=== PATIENT | male | born 1980 | race Caucasian/White ===

== ENCOUNTER → 2017-12-31 | Outpatient (CLI) | payer BC ==
--- NOTE | 2017-12-31 13:00 | PCVCIMAG ---
APPROVED REPORT Study performed: 12/31/2017 11:09:01 Exam: Stress Echocardiogram Indication: Hyperlipidemia, Dyspnea Patient Location: Echo lab Stress Nurse: Angelia Pineda RN Room #: 2 Status: routine Ht: 5 ft 6 in HR: 78 bpm BP: 136/98 mmHg Rhythm: NSR Medical History Medical History: HyperlipidemiaCrohns disease Cardiac Risk Factors: FHX of early onset CAD Pretest Chest Pain Characteristics: No chest pain Exercise History: Physically active Procedure The patient underwent an Exercise Stress Test using the Tony Protocol. Blood pressure, heart rate, and EKG were monitored. An Echocardiogram was performed by bottle house quality control technician in four stages in quad fashion. At peak stress, four selected images were obtained and placed side by side with resting images for comparison. Stress Test Details Stress Test: Exercise stress testing was performed using a Tony protocol. HR Resting HR: 93 bpmMax Heart Rate (APMHR): 181 bpm Max HR Achieved: 176 bpmTarget HR (85% APMHR): 153 bpm % of APMHR: 97 Recovery HR: 99 bpm HR response to stress: Normal HR response to stress BP Resting BP: 136/98 mmHg Max BP: 176/88 mmHg Recovery BP: 140/76 mmHg BP response to stress: Normal blood pressure response to stress. ECG Resting ECG: Sinus Rhythm Stress ECG: Sinus Rhythm ST Change: Non-ischemic Maximum ST Deviation: 0 mm Arrhythmia: None Recovery ECG: Sinus Rhythm Recovery ST Change: Non-ischemic Recovery ST Deviation: 0 mm Recovery Arrhythmia: None Clinical Reason for Termination: Maximal effort Stress Symptoms: none Exercise duration: 11 min 25 sec Highest Stage Achieved: Stage 4: 4.2 mph at 16% grade. Exercise capacity: 13.4 METs Overall Exercise Capacity for Age: Good Scale: Active Angina Score: None No complications. Stress ECG Conclusion The patient exercised according to the TONY protocol for 11:25 mins; achieving a work level of 13.4 METS. The resting heart rate of 78 bpm pretty to a maximum heart rate of 176 bpm. This value represent 97% of the maximal, age-predicted heart rate. The resting blood pressure of 136/98 mmHg, pretty to a maximum blood pressure of 176/88mmHg. The exercise test was stopped due to fatigue . [place] Treadmill Score is 11.0 which is Low risk. Pre-Stress Echo The resting Echocardiogram showed normal left ventricular contractility with an estimated Ejection Fraction of about 55-60%. Normal wall motion in all segments on baseline images. Post-Stress Echo The stress Echocardiogram showed normal left ventricular contractility with an estimated Ejection Fraction of about 65-70%. Normal augmentation of wall motion in all segments on post stress images. Clinical No clinical or ECG evidence for ischemia. Conclusion Clinical Response: Non-ischemic Exercise Capacity: Superior Stress ECG Response: Non-ischemic Stress Echo Images: Non-ischemic No clinical, EKG or echocardiographic evidence for ischemia. No echocardiographic evidence for exercise induced ischemia. Normal stress echocardiogram with maximal exercise stress. No prior study available for comparison. <Conclusion> No clinical, EKG or echocardiographic evidence for ischemia. No echocardiographic evidence for exercise induced ischemia. Normal stress echocardiogram with maximal exercise stress.
== END | disposition home or self-care (01) ==
LOC: PCVCIMAG 11:08
PROVIDERS: ATTEND Internal Medicine
DX: R06.09 Other forms of dyspnea (principal); E78.5 Hyperlipidemia, unspecified; Z82.49 Family history of ischemic heart disease and other diseases of the circulatory system
CPT/HCPCS: 93325; 93351